=== PATIENT | female | born 1990 | race Caucasian/White ===

== ENCOUNTER 2017-12-10 21:44 | Emergency (ER) | payer BC ==
[~2017-12-10] VITALS: Ht 160 cm; Wt 57.5 kg
[~2017-12-10 21:44] MED LIST: CAMILA0.35 MG PO; DOCUSATE SODIU100 MG PO; FERROUS SULFAT325 MG PO; FOLBIC RF TABL1 EACH IJ; FOLTX TABLET1 EAC1 PO; IBUPROFEN800 MG PO; IRON325 M1 PO; PRENATAL TABLE1 EAC3 PO; PROCARDIA XL30 MG PO
[2017-12-10 23:21] LABS: HEMATOCRIT 39.5 % (36.0-46.0); HEMOGLOBIN 13.4 G/DL (11.9-15.5); MCH 29.8 PG (29.0-34.0); MCHC 33.9 G/DL (30.0-36.0); MCV 87.8 FL (83-99); PLATELET COUNT 220 K/uL (156-360); RBC DIS.WIDTH-CV 12.7 % (11.8-14.6); RBC DIS.WIDTH-SD 40.9 % (39-53); WHITE BLOOD COUNT 10.1 K/uL (4.1-10.2)
[2017-12-10 23:35] LABS: CHLORIDE 106 mEq/L (99-109); POTASSIUM 4.2 mEq/L (3.7-5.4); SODIUM 141 mEq/L (136-147)
[2017-12-10 23:37] LABS: GLUCOSE 91 mg/dL (70-99)
[2017-12-10 23:41] LABS: CREATININE 0.7 mg/dL (0.6-1.3); GFR ESTIMATE (CALCULATED) > 59 mL/min/
[2017-12-10 23:42] LABS: UREA NITROGEN (BUN) 12 mg/dL (9-23)
[2017-12-10 23:51] LABS: QUANTITATIVE HCG 3532.3 MIU/ML
[2017-12-11 00:07] LABS: APPEARANCE CLEAR ((CLEAR)); BILIRUBIN NEGATIVE; BLOOD LARGE; COLOR STRAW ((YELLOW)); GLUCOSE (STRIP) NEGATIVE; KETONES NEGATIVE; LEUKOCYTES NEGATIVE; NITRITE NEGATIVE; PROTEIN (STRIP) NEGATIVE; SPECIFIC GRAVITY 1.006 (1.000-1.030); UROBILINOGEN 0.2 MG/DL (0.2-1.0)
[2017-12-11 00:28] LABS: BACTERIA RARE /HPF; EPITHELIAL CELLS NONE SEEN /HPF; MUCUS NONE SEEN /LPF; UCUL ADDED? NO; WHITE BLOOD CELLS 0-5 /HPF (0-5)
[2017-12-11 01:01] VITALS: BP 108/81
[2017-12-11] MEDS ORDERED: MULTIVITAMIN1 EAC2 PO (01:02)
== END 2017-12-11 01:09 | disposition home or self-care (01) ==
LOC: EME 21:44
PROVIDERS: Physician Assistant
DX: O03.9 Complete or unspecified spontaneous abortion without complication (principal); Z3A.11 11 weeks gestation of pregnancy
CPT/HCPCS: 76801; 80048; 81003; 84702; 85027; 86900; 86901; 99281; 99284